=== PATIENT | female | born 1995 | race Caucasian/White ===

== ENCOUNTER 2017-01-09 07:25 | Day surgery (SDC) | payer OTHER ==
[~2017-01-09] VITALS: Ht 162.6 cm; Wt 70.3 kg
[2017-01-09] MEDS ORDERED: BUPIVACAINE-MPF 0.25% 30 ML VIAL INJ ONE (08:14)
[2017-01-09] MEDS ORDERED: ROCURONIUM 50 MG/5 ML VIAL IV ONE (10:06)
[2017-01-09] MEDS ORDERED: PROPOFOL 200 MG/20 ML VIAL IV ONE (10:06)
[2017-01-09] MEDS ORDERED: DESFLURANE 240 ML BTL INH ONE (10:06)
[2017-01-09] MEDS ORDERED: GLYCOPYRROLATE 0.2 MG/ML VIAL IV ONE (10:06)
[2017-01-09] MEDS ORDERED: NEOSTIGMINE 1:1000 10 MG/10 ML VIAL IV ONE (10:06)
[2017-01-09] MEDS ORDERED: DEXAMETHASONE 4 MG/ML VIAL IVP ONE (10:06)
[2017-01-09] MEDS ORDERED: KETOROLAC 60 MG/2 ML VIAL IM ONE (10:06)
[2017-01-09] MEDS ORDERED: ONDANSETRON 4 MG/2 ML VIAL IVP ONE (10:06)
[2017-01-09] MEDS ORDERED: SUCCINYLCHOLINE CHLORIDE 200 MG/10 ML VIAL IV ONE (10:06)
[2017-01-09] MEDS ORDERED: MIDAZOLAM 2 MG/2 ML VIAL ONE (10:23)
[2017-01-09] MEDS ORDERED: fentaNYL 0.05 MG/ML VIAL ONE (10:23)
[2017-01-09] MEDS ORDERED: MORPHINE SULFATE 4 MG/ML SYR ONE (10:23)
[2017-01-09] MEDS ORDERED: MIDAZOLAM 2 MG/2 ML VIAL IV ONE (11:00)
[2017-01-09] MEDS ORDERED: METOCLOPRAMIDE 10 MG/2 ML INJ VIAL IVP PRN (11:00)
[2017-01-09] MEDS ORDERED: MORPHINE SULFATE 2 MG/ML SYR IVP PRN (11:00)
[2017-01-09] MEDS ORDERED: MORPHINE SULFATE 4 MG/ML SYR IVP PRN ×2 (11:00)
== END 2017-01-09 13:40 | disposition home or self-care (01) ==
LOC: MDS 07:25 → MMU 07:26 → MDS 13:40
PROVIDERS: ATTEND Surgery
DX: L05.91 Pilonidal cyst without abscess (principal); Z98.890 Other specified postprocedural states; Z79.899 Other long term (current) drug therapy
CPT/HCPCS: 11770; 71010; J0330; J0690; J1100; J1885; J2250; J2270; J2405; J2704; J2710; J3010; J3490; J7060; J7120